=== PATIENT | female | born 1950 | race Caucasian/White ===

== ENCOUNTER 2017-02-09 09:00 | Inpatient (IN) | payer MEDICARE, OTHER ==
--- NOTE | 2017-02-08 09:18 | HP ---
HISTORY AND PHYSICAL: DATE OF OFFICE VISIT: 02/03/17 DATE OF ADMISSION/SURGERY: 02/09/17 SURGEON: Rose Luther MD PROCEDURE: Left total knee arthroplasty. CHIEF COMPLAINT: Left knee pain. HISTORY OF PRESENT ILLNESS: Ms. Monae is a 66-year-old female with complaints of left knee pain secondary to advanced osteoarthritis. She has failed conservative management and has elected to proceed with a left total knee arthroplasty, which is scheduled for 02/09/17. PAST MEDICAL HISTORY: DVT of the left lower extremity, hypertension, depression , COPD, GERD, Sun's esophagus, and questionable kidney disease. PAST SURGICAL HISTORY: Left knee arthroscopy, bladder surgery, tonsillectomy, adenoidectomy. CURRENT MEDICATIONS: 1. Coumadin. 2. Vitamin D. 3. Lidocaine patch. 4. Hydralazine 25 mg twice a day. 5. Norvasc 10 mg once a day. 6. Trazodone 100 mg every night. 7. Denavir 3 times daily as needed. 8. Omeprazole 40 mg every day. 9. Oxistat 1%. 10. Fluoxetine 40 mg twice a day. 11. Simvastatin 10 mg q.h.s. 12. Zoloft. ALLERGIES: IBUPROFEN, LEVAQUIN, and SEAFOOD. FAMILY HISTORY: Cancer. SOCIAL HISTORY: She is a 66-year-old female. She is disabled. She does not use alcohol, tobacco, or drugs. REVIEW OF SYSTEMS: A complete 14-point review of systems was reviewed with the patient, positive for COPD and sleep apnea as well as left lower extremity DVT. PHYSICAL EXAMINATION GENERAL: She is well developed, well nourished, in no acute distress. She is alert and oriented x3. Pleasant mood and appropriate affect. VITAL SIGNS: She stands 5 feet 2 inches tall and weighs 220 pounds. Her blood pressure is 168/68, heart rate is 84. HEENT: Normocephalic, atraumatic. NECK: Supple. PULMONARY: Lungs are clear to auscultation bilaterally. CARDIO: Regular rate and rhythm. ABDOMEN: Soft, nontender, nondistended. NEUROLOGIC: She is alert and oriented x3. MUSCULOSKELETAL: Left lower extremity, skin is intact. There are no open wounds or abrasions. She has moderate joint effusion. She has full range of motion of the left knee. Her lower extremity muscle group strengths are intact at 5/5. She has 2+ dorsalis pedis pulses and intact sensation. ASSESSMENT AND PLAN: Ms. Monae is a 66-year-old female with complaints of left knee pain secondary to advanced osteoarthritis. She has failed conservative management and has elected to proceed with left total knee arthroplasty, which is scheduled for 02/09/[address] Luther discussed the risks and benefits of the surgery at today's visit and all of her questions were answered. She will follow up with Dr. Luther 2 weeks after the surgery. CRISTOBAL ECHAVARRIA [id number]/[facility] #: [id number] ISHAN
[~2017-02-09 09:00] MED LIST: Buffered Lidocaine 0.9% SYRIN* 5 ML/SYR SYRINGE INTRADERM ONE; Famotidine IV* 10 MG/ML 2 ML (20 mg) IV ONE; Morphine INJ* 2 MG/ML 1 ML SYRINGE IV PRN; PROCHLORPERAZINE INJ 5 MG/ML 2 ML VIAL IV PRN; fentaNYL* 50 MCG/ML 2 ML VIAL (100 MCG VIAL) IV PRN; oxyCODONE/Acetamin 5/325 MG* TAB PO PRN
[2017-02-09] MEDS ORDERED: Buffered Lidocaine 0.9% SYRIN* 5 ML/SYR SYRINGE ONE (11:16)
[2017-02-09] MEDS ORDERED: ceFAZolin 2 GM PREMIX(*) 2 GM/50 ML BAG IVPB ONE (11:16)
[2017-02-09] MEDS ORDERED: Famotidine IV* 10 MG/ML 2 ML (20 mg) ONE (11:16)
[2017-02-09] MEDS ORDERED: Midazolam* 1 MG/ML 10 ML VIAL (10 MG) ONE (13:21)
[2017-02-09] MEDS ORDERED: KETAMINE HCL* 50 MG/ML 10 ML VIAL ONE (13:21)
[2017-02-09] MEDS ORDERED: fentaNYL* 50 MCG/ML 2 ML VIAL (100 MCG VIAL) ONE ×2 (13:21→18:54)
[2017-02-09] MEDS ORDERED: Morphine PF AMP (0.5MG/ML)* 5 MG/10 ML AMP ONE (13:53)
[2017-02-09] MEDS ORDERED: Ketorolac INJ* 30 MG/ML 1 ML VIAL IV PRN (15:09)
[2017-02-09] MEDS ORDERED: Ondansetron INJ* 2 MG/ML VIAL IV PRN (15:09)
[2017-02-09] MEDS ORDERED: Naloxone* 0.4 MG/ML 1 ML VIAL IV PRN (15:09)
[2017-02-09] MEDS ORDERED: Nalbuphine* 20 MG/ML 1 ML VIAL IV PRN (15:09)
[2017-02-09] MEDS ORDERED: PROCHLORPERAZINE INJ 5 MG/ML 2 ML VIAL IV PRN (15:09)
[2017-02-09] MEDS ORDERED: diPHENhydraMINE IV* 50 MG/ML 1 ml VIAL (BENADRYL) IV PRN (15:09)
[2017-02-09] MEDS ORDERED: Magnesium Hydroxide LIQ* 30 ML UDC PO PRN (15:33)
[2017-02-09] MEDS ORDERED: Polyethylene Glycol 3350* 17 GM PACKET PO PRN (15:33)
[2017-02-09] MEDS ORDERED: Bisacodyl SUPP* 10 MG SUPP PR PRN (15:33)
[2017-02-09] MEDS ORDERED: Acetaminophen TAB* 325 MG PO PRN (15:33)
[2017-02-09] MEDS ORDERED: Propofol* 10 MG/ML 20 ML BTL IV PUSH ONE (16:39)
[2017-02-09] MEDS ORDERED: ROPIVACAINE 5 MG/ML 30 ML BTL (0.5%) ONE (16:39)
[2017-02-09] MEDS ORDERED: Bupivacaine 0.5% SDV PF* 30 ML VIAL ONE (16:39)
[2017-02-09] MEDS ORDERED: Propofol* 500 MG/50 ML BTL ONE (16:39)
[2017-02-09] MEDS ORDERED: Lidocaine 2% PF * 5 ML VIAL ONE (16:39)
[2017-02-09] MEDS ORDERED: Phenylephrine INJ* 10 MG/ML 1 ML VIAL (10 MG) ONE (16:40)
[2017-02-09] MEDS ORDERED: Warfarin TAB(*) 6 MG PO ONE ×2 (17:00→21:00)
--- NOTE | 2017-02-09 17:14 | CONSULT ---
Subjective Date of Service: 02/09/17 Interval History: Ms. Monae is a 66 yo female with a PMH significant for LLE DVT, HTN, COPD, СЕРГЕЙ, GERD, depression, Sun's esophagus, and kidney disease. She reports a hx of left knee pain secondary to osteoarthritis that has failed outpatient management. Ms. Monae is still somewhat drowsy following her anesthesia but currently denies any pain or other complaint, other than itching to her face. She denies any recent fever/illness, CP, SOB, abd pain, n/v and felt well prior to admission. Family History: Findings - hereditary blindness, uterine cancer in mother and sister Social History: Findings - 43 year smoking hx, quit 02/2016; denies ETOH and drug use; currently on disability secondary to occupational accident Past Medical History: Findings - HTN, depression, chronic back pain, COPD, GERD , Sun's esophagus, DVT LLE 09/2016, СЕРГЕЙ on CPAP; PSH: repair vaginal vault prolapse, hysterectomy, oopherectomy, tonsillectomy, cholecystectomy, knee arthroscopy Review of Systems - Measurements Intake and Output: Intake and Output Last 24 Hours 02/07/17 02/08/17 02/09/17 02/10/17 06:59 06:59 06:59 06:59 Weight 235 lb - Review of Systems Constitutional Symptoms: Negative: Weakness, Fatigue, Fever Dermatology: Negative: Rash, Skin Lesions HEENT: Negative: Change in Hearing, Vertigo Eyes: Negative: Change in Vision Pulmonary: Positive: COPD Negative: Cough, Wheezing, Respiratory Distress Cardiology: Negative: Chest Pain, Shortness of Breath, Palpitations, Syncope Gastroenterology: Negative: Abdominal Pain, Nausea, Vomiting, Diarrhea Genital - Urinary: Negative: Dysuria, Polyuria Musculoskeletal: Positive: Low Back Pain - chronic Neurology: Negative: Headache, Change in Vision, Numbness\Paresthesiae Objective Active Medications: Acetaminophen (Tylenol Tab*) 650 mg PO Q4H PRN PRN Reason: PAIN OR TEMPERATURE Bisacodyl (Dulcolax Supp*) 10 mg CA DAILY PRN PRN Reason: constipation Diphenhydramine HCl (Benadryl Iv*) 12.5 mg IV Q6H PRN PRN Reason: PRURITIS Diphenhydramine HCl (Benadryl Iv*) 12.5 mg IV Q6H PRN PRN Reason: PRURITIS Docusate Sodium (Colace Cap*) 100 mg PO BID [facility] Enoxaparin Sodium (Lovenox(*)) 30 mg SUBCUT Q24H [facility] Famotidine (Pepcid Iv*) 20 mg IV ONCE ONE Stop: 02/09/17 06:01 Last Admin: 02/09/17 11:59 Dose: 20 mg Fentanyl Citrate (Fentanyl*) 25 mcg IV Q3M PRN PRN Reason: PAIN - MODERATE Stop: 02/09/17 06:07 Lactated Ringer's (Lactated Ringers 1000 Ml Bag*) 1,000 mls @ 125 mls/hr IV PER RATE [facility] Last Admin: 02/09/17 11:59 Dose: 125 mls/hr Cefazolin Sodium 1 gm/ Sodium (Chloride) 50 mls @ 200 mls/hr IVPB Q8H [facility] Stop: 02/10/17 08:14 Lactated Ringer's (Lactated Ringers 1000 Ml Bag*) 1,000 mls @ 100 mls/hr IV PER RATE [facility] Ketorolac Tromethamine (Toradol Inj*) 15 mg IV Q6H PRN PRN Reason: PAIN Stop: 02/11/17 21:10 Lactulose (Lactulose*) 30 ml PO Q6H PRN PRN Reason: constipation Lidocaine/Sodium Bicarbonate (Buffered Lidocaine 0.9% Syrin*) 0.2 ml INTRADERM ONCE ONE Stop: 02/08/17 11:20 Last Admin: 02/09/17 12:00 Dose: 1 applic Magnesium Hydroxide (Milk Of Magnesia Liq*) 30 ml PO Q6H PRN PRN Reason: constipation Morphine Sulfate (Morphine Inj (Syringe)*) 2 mg IV Q5M PRN PRN Reason: PAIN - SEVERE Stop: 02/09/17 06:06 Morphine Sulfate (Morphine Inj (Syringe)*) 2 mg IV Q2H PRN PRN Reason: PAIN Nalbuphine HCl (Nubain*) 5 mg IV Q6H PRN PRN Reason: pruritis Naloxone HCl (Narcan*) 0.08 mg IV Q2M PRN PRN Reason: respiratory depression Ondansetron HCl (Zofran Inj*) 2 mg IV Q6H PRN PRN Reason: Nausea/Vomiting Ondansetron HCl (Zofran Tab*) 4 mg PO Q6H PRN PRN Reason: NAUSEA Oxycodone HCl (Roxycodone Tab*) 10 mg PO Q4H PRN PRN Reason: SEVERE PAIN Oxycodone/Acetaminophen (Percocet 5/325 Tab*) 1 tab PO ONCE PRN PRN Reason: PAIN - MODERATE Stop: 02/10/17 05:46 Oxycodone/Acetaminophen (Percocet 5/325 Tab*) 2 tab PO Q4H PRN PRN Reason: Moderate Pain Oxycodone/Acetaminophen (Percocet 5/325 Tab*) 1 tab PO Q3H PRN PRN Reason: PAIN - MODERATE Oxycodone/Acetaminophen (Percocet 5/325 Tab*) 2 tab PO Q3H PRN PRN Reason: PAIN - MODERATE Polyethylene Glycol/Electrolytes (Miralax*) 17 gm PO DAILY PRN PRN Reason: Constipation Prochlorperazine Edisylate (Compazine Inj*) 2.5 mg IV ONCE PRN PRN Reason: NAUSEA/VOMITING Stop: 02/09/17 05:46 Prochlorperazine Edisylate (Compazine Inj*) 2.5 mg IV Q6H PRN PRN Reason: NAUSEA/VOMITING Warfarin Sodium (Coumadin Tab(*)) 6 mg PO ONCE@1700 ONE PRN Reason: Protocol Stop: 02/09/17 17:01 Vital Signs 02/09/17 11:19 Temperature 97.0 F Pulse Rate 74 Respiratory 18 Rate Blood Pressure 161/77 (mmHg) O2 Sat by Pulse 95 Oximetry Oxygen Devices in Use Now: Nasal Cannula Appearance: Older female, lying in bed, NAD, drowsy but arousable and answering appropriately Eyes: No Scleral Icterus Ears/Nose/Mouth/Throat: Mucous Membranes Moist Neck: NL Appearance and Movements; NL JVP Respiratory: Symmetrical Chest Expansion and Respiratory Effort, Clear to Auscultation Cardiovascular: NL Sounds; No Murmurs; No JVD, RRR Abdominal: NL Sounds; No Tenderness; No Distention Extremities: No Clubbing, Cyanosis, - - LLE dressing c/d/i, movement/sensation intact to BLE Neurological: NL Muscle Strength and Tone, - - follows commands, oriented x 3 Lines/Tubes/Other Access: Clean, Dry and Intact Murdock, Clean, Dry and Intact Peripheral IV Nutrition: Taking PO's Assessment/Plan - Billing Ms. Monae is a 66 yo female with a PMH significant for LLE DVT, HTN, COPD, СЕРГЕЙ, GERD, depression, Sun's esophagus, and kidney disease who was admitted on 02/09/17 for an elective left total knee replacement. Plan By Medical Problem: 1. Left total knee arthroplasty - POD #0, management per ortho. Continue pain management, plan for PT/OT. 2. Hx of LLE DVT - dx September 2016, plan to continue warfarin through March 2017. Patient previously on warfarin, recommend resume anticoagulation as soon as possible (recommend within 24 hours) as patient is at risk for further DVT/ PE complications. Outpatient f/u with Dr. Sher (hematology) 3. HTN - Currently normotensive, continue hydralazine. 4. СЕРГЕЙ - Continue CPAP (patient brought home machine). 5. COPD - Stable. PRN albuterol available. 6. Depression - Continue home sertraline. Resume trazodone tomorrow (with hold parameters for sedation). 7. GERD and Sun's esophagus - Stable, continue omeprazole. 8. Kidney disease - continue to trend renal function. 9. Chronic lumbar radiculopathy with sciatica - PRN analgesia available. Patient uses prn cyclobenzaprine and lidocaine patches at home. Question if patient still is on Lyrica (has not been filled for several months). NOTE: Patient's initial med list in the computer does not match what is on patient's PCP medication list. Medications vary between PCP, hematology, and mental health. Med list updated per pharmacy but may be helpful to have family bring patient's home meds in so that we can confirm that what we have is correct. VTE PPX: Per ortho Diet: Heart healthy diet Code Status: Full code Admission Status and Rationale: Inpatient admission, dispo per ortho. Hospitalist co-medical management Thank you for this consult. We will follow with you. Counseling and/or Coordination of Care Minutes: 45
[2017-02-09] MEDS ORDERED: Nalbuphine* 20 MG/ML 1 ML VIAL ONE (17:32)
[2017-02-09] MEDS ORDERED: diPHENhydraMINE IV* 50 MG/ML 1 ml VIAL (BENADRYL) ONE (17:41)
[2017-02-09] MEDS ORDERED: Albuterol HFA INHALER* 8 gm MDI INH PRN (18:15)
[2017-02-09] MEDS ORDERED: Albuterol 2.5 MG/3 ML NEB.SOL* (0.083%) INH PRN (18:15)
[2017-02-09] MEDS ORDERED: oxyCODONE/Acetamin 5/325 MG* TAB ONE (18:54)
--- NOTE | 2017-02-09 18:57 | RAD ---
Indication: Left knee replacement 2 views left knee demonstrates left knee replacement in satisfactory position. No loosening is noted. IMPRESSION: Left knee replacement in satisfactory position.
[2017-02-09] MEDS: Docusate CAP* 100 MG PO SCH (21:13)
[2017-02-09] MEDS: hydrALAZINE TAB* 25 MG PO SCH (21:14)
[2017-02-09] MEDS: oxyCODONE/Acetamin 5/325 MG* TAB PO PRN (22:58)
[2017-02-09] MEDS: ceFAZolin VIAL(*) 1 GM in NS 0.9% 50 ML* 50 ML IVPB SCH (22:59)
[2017-02-10] MEDS: oxyCODONE/Acetamin 5/325 MG* TAB PO PRN ×5 (02:59→22:13)
[2017-02-10] MEDS ORDERED: NS 0.9% 500 ML BAG* 500 ML IV ONE (06:15)
[2017-02-10] MEDS: Omeprazole CAP* 20 MG PO SCH (06:21)
[2017-02-10] MEDS ORDERED: Morphine INJ* 2 MG/ML 1 ML SYRINGE IV PRN (06:35)
[2017-02-10 06:52] LABS: Hematocrit 30 % (35-47)
[2017-02-10 06:58] LABS: BUN/Creatinine Ratio 17.1 (8-20); Calcium 8.9 mg/dL (8.6-10.3); EGFR African American 55.8 (>60); EGFR Non-African American 43.4 (>60); Potassium 4.4 mmol/L (3.5-5.0)
[2017-02-10] MEDS ORDERED: Ondansetron TAB* 4 MG PO PRN (07:10)
[2017-02-10] MEDS ORDERED: diPHENhydraMINE IV* 50 MG/ML 1 ml VIAL (BENADRYL) IV PRN (07:10)
[2017-02-10] MEDS: ceFAZolin VIAL(*) 1 GM in NS 0.9% 50 ML* 50 ML IVPB SCH ×2 (07:34→15:02)
[2017-02-10] MEDS: Sertraline* 50 MG TAB PO SCH (07:37)
[2017-02-10] MEDS: Docusate CAP* 100 MG PO SCH ×2 (07:37→22:12)
[2017-02-10] MEDS: hydrALAZINE TAB* 25 MG PO SCH ×2 (08:46→22:12)
--- NOTE | 2017-02-10 08:58 | OP ---
DATE OF OPERATION: 02/09/17 - ROOM #341 DATE OF : 46 SURGEON: Rose Luther MD GEOTHERMAL PRODUCTION MANAGER: CRISTOBAL Summers. Hai Levy did help throughout the procedure with preparation of the leg, wound retraction, manipulation of the knee, and wound closure. ANESTHESIOLOGIST: Dr. Felipe Kang. ANESTHESIA: Spinal. PRE-OP DIAGNOSIS: Severe endstage degenerative osteoarthritis of the left knee joint. POST-OP DIAGNOSIS: Severe endstage degenerative osteoarthritis of the left knee joint. OPERATIVE PROCEDURE: Left total knee arthroplasty. COMPLICATIONS: None. TOURNIQUET TIME: 52 minutes. ESTIMATED BLOOD LOSS: 200 cc. SPECIMENS: Bone and cartilage from the left knee joint sent to Pathology. HARDWARE USED: [employer] cemented total knee hardware. Two packages of simplex bone cement were used. For the femur, a left narrow size 4 posterior stabilized femoral component. For the tibia, a size 3 left tibial baseplate. For the insert, an 11 mm posterior stabilized articular insert. For the patella , a 29, 7.5 thickness 3 peg all poly patella. BRIEF HISTORY/INDICATIONS: Ms. Monae is a 66-year-old female who is here at this point with severe left knee pain. Radiographs showed [id number] arthritis. She failed conservative treatment with antiinflammatories, pain medications, intraarticular injections, and physical therapy. She elected to undergo left total knee arthroplasty due to continued pain and decreased quality of life. Informed consent was obtained from the patient. The patient understood the risks of surgery included, but were not limited to bleeding, infection, damage to nearby structures, continued pain, need for further surgery, intraoperative fracture, nerve palsy, hardware failure, knee stiffness, loss of motion, stroke , heart attack, blood clot, and . She wished to proceed. INTRAOPERATIVE FINDINGS: Intraoperatively, the patient was noted to have severe endstage arthritis with complete loss of cartilage in the patellofemoral and medial compartment. DESCRIPTION OF PROCEDURE: Ms. Monae was identified in the preanesthesia unit. Her left lower extremity was marked as the correct preoperative side. Informed consent was signed and placed in the chart. The patient was taken to the operating room and placed under spinal anesthesia without difficulty. A Murdock catheter was placed. A tourniquet was placed on the left high. The left lower extremity was prepped and draped in the usual sterile fashion. Preop time -out was made to correctly identify the patient side and site. Appropriate perioperative antibiotics were given within 1 hour of incision. Tourniquet was inflated until the tourniquet time for this procedure was 52 minutes. A 14 cm midline incision was made with a 10 blade and carried down to the extensor mechanism. A new 10 blade was used to make a standard medial parapatellar arthrotomy. The patella was subluxed laterally. Electrocautery was used to subperiosteally elevate soft tissue off the superomedial tibia to the mid sagittal plane. The knee was flexed up. The anterior horn of the lateral meniscus and the ACL was sharply released. A drill was used to enter the distal femur. Intramedullary distal femoral cutting jig was pinned on the distal femur. A 9 mm of distal femoral bone was carefully removed. Next the external rotational guide pinned on the distal femur. Distal femur was sized to a size 4. Size 4 multi- cutting jig was pinned on the distal femur. Oscillating saw was used to make the appropriate 4 chamfer cuts. The PCL was completely released and tibia was subluxed anteriorly. Extramedullary tibial cutting guide was pinned on the proximal tibia. The oscillating saw was used to make the appropriate proximal tibial cut perpendicular to the mechanical axis of the tibia. The knee was brought out into full extension. Spacer block had good fit with the knee in full extension. There is good medial and lateral balancing. Flexion and extension gaps were well balanced. The knee was flexed up. Lamina steam table associate was placed both medially and laterally. Any remaining meniscus was carefully removed using electrocautery. Any posterior osteophytes were removed with a curved osteotome. A size 4 left narrow femoral trial was impacted on to the distal femur and had good fit. The box for the posterior stabilized implant was prepared using a reamer and box- cut osteotome. Size 3 tibial tray trial with an 11 mm insert trial was placed and the knee was taken through the range of motion. The knee had full extension to 130 degrees flexion with good patellofemoral tracking. The patella was everted. 7 mm of patellar bone and cartilage were carefully removed using an oscillating saw. The patella was sized to size 29. The 3 pegs were drilled through the size 29 guide. A 7.5 thickness size 29 trial patella was placed and the knee was taken through range of motion. There is good patellofemoral tracking. All trials were carefully removed. The tibia was subluxed anteriorly and sized to a size 3. Proximal tibia was prepared using a size 3 keel punch. All bony cut surfaces were copiously irrigated with sterile saline and dried. Final implants were cemented into place, starting with the tibia followed by the femur , and lastly the patella. An 11-mm insert trial was placed and the knee was brought out to full extension while the cement was fully cured. The tourniquet was turned down at 52 minutes. The knee was copiously irrigated with sterile saline. Electrocautery was used to obtain meticulous hemostasis. Once the cement was fully cured. The insert trial was removed. Any excess cement was carefully removed from around the hardware and capsule. A size 11 posterior stabilized insert was chosen as the final insert. This was locked into position on the tibial tray. Stability of the insert was checked and rechecked and noted to be stable. The knee was copiously irrigated with sterile saline. The extensor mechanism was closed over a median Hemovac drain using interrupted #1 Vicryl's. The rest of the incision was closed in a layered fashion using 0 and 2-0 Vicryl's. The skin was closed using running 3-0 nylon suture. Sterile Xeroform, 4x4s, and Webril were used to cover the incision. Michael wrap and cold pack were placed over this. The patient's anesthesia was reversed without difficulty. She was taken to the PACU in stable condition. Intended weightbearing will be weightbearing as tolerated. Intended DVT prophylaxis will be Coumadin with a Lovenox bridge. [id number]/[facility] #: [id number] ISHAN
[2017-02-10] MEDS ORDERED: Enoxaparin(*) 30 MG/0.3 ML SYR SUBCUT SCH ×2 (09:00→21:00)
[2017-02-10] MEDS ORDERED: oxyCODONE TAB* 5 MG TAB ONE (11:06)
[2017-02-10] MEDS: oxyCODONE TAB* 5 MG TAB PO PRN ×3 (11:07→19:55)
--- NOTE | 2017-02-10 11:55 | PN ---
Progress Note - Progress Note Date of Service: 02/10/17 Note: anesthesia duramorph followup. The had a rough night, is complaining of pain. She is getting oral meds. Neuro ok, no ALAN. s/p TKR continue oral meds
[2017-02-10] MEDS ORDERED: Warfarin TAB(*) 4 MG PO ONE (17:00)
--- NOTE | 2017-02-10 17:06 | PN ---
Subjective Date of Service: 02/10/17 Interval History: Good pain control, got OOB twice today. No new c/o. She has taken 4.5 mg warfarin daily for the past month, different doses before that. Family History: Findings - hereditary blindness, uterine cancer in mother and sister Social History: Findings - 41 year smoking hx, quit 02/2016; denies ETOH and drug use; currently on disability secondary to occupational accident Past Medical History: Findings - HTN, depression, chronic back pain, COPD, GERD , Liu's esophagus, DVT LLE 09/2016, СЕРГЕЙ on CPAP; PSH: repair vaginal vault prolapse, hysterectomy, oopherectomy, tonsillectomy, cholecystectomy, knee arthroscopy Objective Active Medications: Acetaminophen (Tylenol Tab*) 650 mg PO Q4H PRN PRN Reason: PAIN OR TEMPERATURE Albuterol (Ventolin 2.5 Mg/3 Ml Neb.Lucy*) 2.5 mg INH Q4H PRN PRN Reason: SOB/WHEEZING Albuterol (Ventolin Hfa Inhaler*) 2 puff INH Q4H PRN PRN Reason: SOB/WHEEZING Atorvastatin Calcium (Lipitor*) 10 mg PO DAILY@17[facility] Bisacodyl (Dulcolax Supp*) 10 mg [place] DAILY PRN PRN Reason: constipation Diphenhydramine HCl (Benadryl Iv*) 12.5 mg IV Q6H PRN PRN Reason: PRURITIS Docusate Sodium (Colace Cap*) 100 mg PO BID [facility] Last Admin: 02/10/17 07:37 Dose: 100 mg Enoxaparin Sodium (Lovenox(*)) 100 mg SUBCUT Q12HR [facility] Hydralazine HCl (Apresoline Tab*) 25 mg PO BID [facility] Last Admin: 02/10/17 08:46 Dose: 25 mg Lactated Ringer's (Lactated Ringers 1000 Ml Bag*) 1,000 mls @ 100 mls/hr IV PER RATE [facility] Last Admin: 02/10/17 08:45 Dose: 100 mls/hr Ketorolac Tromethamine (Toradol Inj*) 15 mg IV Q6H PRN PRN Reason: PAIN Stop: 02/11/17 21:10 Lactulose (Lactulose*) 30 ml PO Q6H PRN PRN Reason: constipation Magnesium Hydroxide (Milk Of Magnesia Liq*) 30 ml PO Q6H PRN PRN Reason: constipation Morphine Sulfate (Morphine Inj (Syringe)*) 2 mg IV Q2H PRN PRN Reason: PAIN Last Admin: 02/10/17 06:37 Dose: 2 mg Omeprazole (Prilosec Cap*) 40 mg PO DAILY@0600 [facility] Last Admin: 02/10/17 06:21 Dose: 40 mg Ondansetron HCl (Zofran Tab*) 4 mg PO Q6H PRN PRN Reason: NAUSEA Oxycodone HCl (Roxycodone Tab*) 10 mg PO Q4H PRN PRN Reason: SEVERE PAIN Last Admin: 02/10/17 15:33 Dose: 10 mg Oxycodone/Acetaminophen (Percocet 5/325 Tab*) 1 tab PO Q3H PRN PRN Reason: PAIN - MODERATE Oxycodone/Acetaminophen (Percocet 5/325 Tab*) 2 tab PO Q3H PRN PRN Reason: PAIN - MODERATE Last Admin: 02/10/17 13:03 Dose: 2 tab Pharmacy Profile Note (Coumadin Daily Reminder*) 0 note FOLLOW UP 1700 [facility] Polyethylene Glycol/Electrolytes (Miralax*) 17 gm PO DAILY PRN PRN Reason: Constipation Sertraline HCl (Zoloft*) 100 mg PO DAILY [facility] Last Admin: 02/10/17 07:37 Dose: 100 mg Trazodone HCl (Desyrel Tab*) 100 mg PO BEDTIME [facility] Warfarin Sodium (Coumadin Tab(*)) 4.5 mg PO DAILY@1700 [facility] PRN Reason: Protocol Vital Signs 02/09/17 02/09/17 02/09/17 17:10 17:15 17:20 Temperature 97.9 F Pulse Rate 74 69 70 Respiratory 10 12 12 Rate Blood Pressure 155/67 149/92 165/60 (mmHg) O2 Sat by Pulse 99 99 99 Oximetry 02/09/17 02/09/17 02/09/17 17:25 17:30 17:45 Temperature Pulse Rate 72 62 65 Respiratory 14 15 12 Rate Blood Pressure 139/58 135/59 140/63 (mmHg) O2 Sat by Pulse 100 96 97 Oximetry 02/09/17 02/09/17 02/09/17 18:00 18:15 18:30 Temperature Pulse Rate 59 63 72 Respiratory 12 16 14 Rate Blood Pressure 149/56 136/73 138/65 (mmHg) O2 Sat by Pulse 98 97 97 Oximetry 02/09/17 02/09/17 02/09/17 18:45 18:57 19:00 Temperature 97.2 F Pulse Rate 67 63 Respiratory 16 16 16 Rate Blood Pressure 157/60 130/60 (mmHg) O2 Sat by Pulse 96 97 Oximetry 02/09/17 02/09/17 02/09/17 19:15 19:29 19:36 Temperature 97.2 F 97.2 F Pulse Rate 60 59 Respiratory 16 14 Rate Blood Pressure 137/64 133/50 (mmHg) O2 Sat by Pulse 95 96 96 Oximetry 02/09/17 02/09/17 02/09/17 20:00 20:42 21:18 Temperature 97.4 F Pulse Rate 78 66 Respiratory 18 16 14 Rate Blood Pressure 129/55 (mmHg) O2 Sat by Pulse 95 96 Oximetry 02/09/17 02/09/17 02/09/17 21:37 22:58 23:48 Temperature 97.7 F 97.7 F Pulse Rate 69 73 Respiratory 16 16 18 Rate Blood Pressure 133/61 122/57 (mmHg) O2 Sat by Pulse 98 93 Oximetry 02/10/17 02/10/17 02/10/17 00:58 01:34 02:10 Temperature 98.0 F Pulse Rate 71 Respiratory 16 18 18 Rate Blood Pressure 129/52 (mmHg) O2 Sat by Pulse 94 Oximetry 02/10/17 02/10/17 02/10/17 02:59 03:17 04:59 Temperature 97.8 F Pulse Rate 72 Respiratory 16 16 16 Rate Blood Pressure 110/47 (mmHg) O2 Sat by Pulse 98 Oximetry 02/10/17 02/10/17 02/10/17 06:37 07:30 07:36 Temperature Pulse Rate 70 Respiratory 16 16 18 Rate Blood Pressure 137/50 (mmHg) O2 Sat by Pulse 94 Oximetry 02/10/17 02/10/17 02/10/17 07:40 09:36 10:25 Temperature 99.0 F Pulse Rate Respiratory 16 18 Rate Blood Pressure (mmHg) O2 Sat by Pulse Oximetry 02/10/17 02/10/17 02/10/17 11:07 11:48 13:03 Temperature 98.9 F Pulse Rate 78 Respiratory 17 16 20 Rate Blood Pressure 157/55 (mmHg) O2 Sat by Pulse 95 Oximetry 02/10/17 02/10/17 02/10/17 13:05 15:03 15:31 Temperature 99.6 F Pulse Rate 87 Respiratory 20 18 16 Rate Blood Pressure 170/63 (mmHg) O2 Sat by Pulse 96 Oximetry 02/10/17 02/10/17 15:33 16:04 Temperature Pulse Rate 87 Respiratory 18 16 Rate Blood Pressure (mmHg) O2 Sat by Pulse 96 Oximetry Oxygen Devices in Use Now: Nasal Cannula Appearance: Alert, partly up in bed. In good spirits. Looks comfortable. Extremities: No Edema, No Clubbing, Cyanosis, - Skin: No Rash or Ulcers, No Nodules or Sclerosis, - Neurological: Alert and Oriented x 3, NL Sensation Result Diagrams: 02/10/17 06:31 02/10/17 06:31 Assess/Plan/Problems-Billing Ms. Monae is a 66 yo female with a PMH significant for LLE DVT, HTN, COPD, СЕРГЕЙ, GERD, depression, Liu's esophagus, and kidney disease who was admitted on 02/09/17 for an elective left total knee replacement. Plan By Medical Problem: 1. Left total knee arthroplasty - POD #0, management per ortho. Continue pain management, plan for PT/OT. 2. Hx of LLE DVT - dx September 2016, plan to continue warfarin through March 2017. Patient previously on warfarin, recommend resume anticoagulation as soon as possible (recommend within 24 hours) as patient is at risk for further DVT/ PE complications. Outpatient f/u with Dr. Sher (hematology) 3. HTN - Currently normotensive, continue hydralazine. 4. СЕРГЕЙ - Continue CPAP (patient brought home machine). 5. COPD - Stable. PRN albuterol available. 6. Depression - Continue home sertraline. Resume trazodone tomorrow (with hold parameters for sedation). 7. GERD and Liu's esophagus - Stable, continue omeprazole. 8. Kidney disease - continue to trend renal function. 9. Chronic lumbar radiculopathy with sciatica - PRN analgesia available. Patient uses prn cyclobenzaprine and lidocaine patches at home. Question if patient still is on Lyrica (has not been filled for several months). NOTE: Patient's initial med list in the computer does not match what is on patient's PCP medication list. Medications vary between PCP, hematology, and mental health. Med list updated per pharmacy but may be helpful to have family bring patient's home meds in so that we can confirm that what we have is correct. VTE PPX: Per ortho Diet: Heart healthy diet Code Status: Full code Admission Status and Rationale: Inpatient admission, dispo per ortho. Hospitalist co-medical management Thank you for this consult. We will follow with you. - Patient Problems (1) DVT (deep venous thrombosis) Current Visit: Yes Status: Acute Code(s): I82.409 - ACUTE EMBOLISM AND THOMBOS UNSP DEEP VN UNSP LOWER EXTREMITY SNOMED Code(s): 772815362 Comment: Diagnosed at [facility] 09/23, has 1 more month to go of tx. Depending on her mobility at that point could consider extending the period of antiocagulation. Bridge with enoxaparin 1 mg/kg q 12 hr, adequate GFR for full dose. No more Duramorph planned. (2) HTN (hypertension) Current Visit: Yes Status: Acute Code(s): I10 - ESSENTIAL (PRIMARY) HYPERTENSION SNOMED Code(s): 75029009 Comment: Continue hydralazine. (3) СЕРГЕЙ (obstructive sleep apnea) Current Visit: Yes Status: Acute Code(s): G47.33 - OBSTRUCTIVE SLEEP APNEA ( ADULT) (PEDIATRIC) SNOMED Code(s): 73527281 Comment: Using her home CPAP. (4) COPD (chronic obstructive pulmonary disease) Current Visit: Yes Status: Acute Code(s): J44.9 - CHRONIC OBSTRUCTIVE PULMONARY DISEASE, UNSPECIFIED SNOMED Code(s): 38947665 Comment: Albuterol PRN. (5) Liu esophagus Current Visit: Yes Status: Acute Code(s): K22.70 - LIU'S ESOPHAGUS WITHOUT DYSPLASIA SNOMED Code(s): 595326789 Comment: Continue omeprazole.
[2017-02-10] MEDS: Warfarin TAB(*) 2 MG PO SCH (17:38)
[2017-02-10] MEDS: Atorvastatin* 10 MG TAB PO SCH (17:38)
[2017-02-10] MEDS: Warfarin TAB(*) 2.5 MG PO SCH (17:39)
[2017-02-10] MEDS: traZODone TAB* 100 MG PO SCH (22:12)
[2017-02-10] MEDS: Enoxaparin(*) 100 MG/ML SYR SUBCUT SCH (22:13)
[2017-02-11] MEDS: oxyCODONE TAB* 5 MG TAB PO PRN ×3 (00:23→08:18)
[2017-02-11] MEDS: oxyCODONE/Acetamin 5/325 MG* TAB PO PRN ×6 (02:21→22:24)
[2017-02-11 05:08] LABS: Hematocrit 29 % (35-47); Hemoglobin 9.4 g/dl (12.0-16.0)
[2017-02-11] MEDS: Omeprazole CAP* 20 MG PO SCH (06:21)
[2017-02-11] MEDS: Sertraline* 50 MG TAB PO SCH (09:01)
[2017-02-11] MEDS: hydrALAZINE TAB* 25 MG PO SCH ×2 (09:01→20:01)
[2017-02-11] MEDS: Enoxaparin(*) 100 MG/ML SYR SUBCUT SCH (09:01)
[2017-02-11] MEDS: Docusate CAP* 100 MG PO SCH ×2 (09:01→20:01)
--- NOTE | 2017-02-11 12:22 | PN ---
Subjective Date of Service: 02/11/17 Interval History: Isbell L knee slowly improving. No new c/o. Family History: Findings - hereditary blindness, uterine cancer in mother and sister Social History: Findings - 41 year smoking hx, quit 02/2016; denies ETOH and drug use; currently on disability secondary to occupational accident Past Medical History: Findings - HTN, depression, chronic back pain, COPD, GERD , Liu's esophagus, DVT LLE 09/2016, СЕРГЕЙ on CPAP; PSH: repair vaginal vault prolapse, hysterectomy, oopherectomy, tonsillectomy, cholecystectomy, knee arthroscopy Objective Active Medications: Acetaminophen (Tylenol Tab*) 650 mg PO Q4H PRN PRN Reason: PAIN OR TEMPERATURE Albuterol (Ventolin 2.5 Mg/3 Ml Neb.Lucy*) 2.5 mg INH Q4H PRN PRN Reason: SOB/WHEEZING Albuterol (Ventolin Hfa Inhaler*) 2 puff INH Q4H PRN PRN Reason: SOB/WHEEZING Atorvastatin Calcium (Lipitor*) 10 mg PO DAILY@1700 COUNTS INCLUDE 234 BEDS AT [facility] Last Admin: 02/10/17 17:38 Dose: 10 mg Bisacodyl (Dulcolax Supp*) 10 mg [place] DAILY PRN PRN Reason: constipation Diphenhydramine HCl (Benadryl Iv*) 12.5 mg IV Q6H PRN PRN Reason: PRURITIS Docusate Sodium (Colace Cap*) 100 mg PO BID COUNTS INCLUDE 234 BEDS AT THE [facility] Last Admin: 02/11/17 09:01 Dose: 100 mg Enoxaparin Sodium (Lovenox(*)) 80 mg SUBCUT Q12HR COUNTS INCLUDE 234 BEDS AT THE [facility] Hydralazine HCl (Apresoline Tab*) 25 mg PO BID COUNTS INCLUDE 234 BEDS AT THE [facility] Last Admin: 02/11/17 09:01 Dose: 25 mg Lactated Ringer's (Lactated Ringers 1000 Ml Bag*) 1,000 mls @ 100 mls/hr IV PER RATE COUNTS INCLUDE 234 BEDS AT THE [facility] Last Admin: 02/10/17 08:45 Dose: 100 mls/hr Ketorolac Tromethamine (Toradol Inj*) 15 mg IV Q6H PRN PRN Reason: PAIN Stop: 02/11/17 21:10 Lactulose (Lactulose*) 30 ml PO Q6H PRN PRN Reason: constipation Magnesium Hydroxide (Milk Of Magnesia Liq*) 30 ml PO Q6H PRN PRN Reason: constipation Last Admin: 02/11/17 09:01 Dose: 30 ml Morphine Sulfate (Morphine Inj (Syringe)*) 2 mg IV Q2H PRN PRN Reason: PAIN Last Admin: 02/10/17 06:37 Dose: 2 mg Omeprazole (Prilosec Cap*) 40 mg PO DAILY@0600 COUNTS INCLUDE 234 BEDS AT THE [facility] Last Admin: 02/11/17 06:21 Dose: 40 mg Ondansetron HCl (Zofran Tab*) 4 mg PO Q6H PRN PRN Reason: NAUSEA Oxycodone HCl (Roxycodone Tab*) 10 mg PO Q4H PRN PRN Reason: SEVERE PAIN Last Admin: 02/11/17 08:18 Dose: 10 mg Oxycodone/Acetaminophen (Percocet 5/325 Tab*) 1 tab PO Q3H PRN PRN Reason: PAIN - MODERATE Last Admin: 02/11/17 06:21 Dose: 1 tab Oxycodone/Acetaminophen (Percocet 5/325 Tab*) 2 tab PO Q3H PRN PRN Reason: PAIN - MODERATE Last Admin: 02/11/17 02:21 Dose: 2 tab Pharmacy Profile Note (Coumadin Daily Reminder*) 0 note FOLLOW UP 1700 COUNTS INCLUDE 234 BEDS AT [facility] Last Admin: 02/10/17 17:40 Dose: 1 note Polyethylene Glycol/Electrolytes (Miralax*) 17 gm PO DAILY PRN PRN Reason: Constipation Sertraline HCl (Zoloft*) 100 mg PO DAILY COUNTS INCLUDE 234 BEDS AT THE [facility] Last Admin: 02/11/17 09:01 Dose: 100 mg Trazodone HCl (Desyrel Tab*) 100 mg PO BEDTIME COUNTS INCLUDE 234 BEDS AT THE [facility] Last Admin: 02/10/17 22:12 Dose: 100 mg Warfarin Sodium (Coumadin Tab(*)) 2.5 mg PO DAILY@1700 COUNTS INCLUDE 234 BEDS AT THE [facility] PRN Reason: Protocol Last Admin: 02/10/17 17:39 Dose: 2.5 mg Warfarin Sodium (Coumadin Tab(*)) 2 mg PO DAILY@1700 COUNTS INCLUDE 234 BEDS AT [facility] Last Admin: 02/10/17 17:38 Dose: 2 mg Vital Signs 02/10/17 02/10/17 02/10/17 13:03 13:05 15:03 Temperature Pulse Rate Respiratory 20 20 18 Rate Blood Pressure (mmHg) O2 Sat by Pulse Oximetry 02/10/17 02/10/17 02/10/17 15:31 15:33 16:00 Temperature 99.6 F Pulse Rate 87 Respiratory 16 18 Rate Blood Pressure 170/63 (mmHg) O2 Sat by Pulse 96 96 Oximetry 02/10/17 02/10/17 02/10/17 16:04 17:33 17:39 Temperature Pulse Rate 87 Respiratory 16 16 16 Rate Blood Pressure (mmHg) O2 Sat by Pulse 96 Oximetry 02/10/17 02/10/17 02/10/17 19:37 19:39 19:55 Temperature 98.8 F Pulse Rate 91 Respiratory 19 14 14 Rate Blood Pressure 154/47 (mmHg) O2 Sat by Pulse 82 Oximetry 02/10/17 02/10/17 02/10/17 21:55 22:13 22:27 Temperature Pulse Rate Respiratory 24 24 24 Rate Blood Pressure (mmHg) O2 Sat by Pulse Oximetry 02/10/17 02/11/17 02/11/17 23:51 00:13 00:23 Temperature 99.2 F Pulse Rate 101 Respiratory 18 20 20 Rate Blood Pressure 164/48 (mmHg) O2 Sat by Pulse 97 Oximetry 02/11/17 02/11/17 02/11/17 02:21 03:33 04:33 Temperature 98.4 F Pulse Rate 106 Respiratory 18 18 18 Rate Blood Pressure 146/53 (mmHg) O2 Sat by Pulse 96 Oximetry 02/11/17 02/11/17 02/11/17 06:21 07:27 08:00 Temperature 98.1 F Pulse Rate 100 Respiratory 18 16 18 Rate Blood Pressure 151/52 (mmHg) O2 Sat by Pulse 92 92 Oximetry 02/11/17 02/11/17 08:18 10:18 Temperature Pulse Rate Respiratory 18 18 Rate Blood Pressure (mmHg) O2 Sat by Pulse Oximetry Oxygen Devices in Use Now: Nasal Cannula Appearance: Alert, sitting up in bed. In good spirits. Looks comfortable. Chiller on L knee. Eyes: No Scleral Icterus Extremities: No Clubbing, Cyanosis, - - 1+ edema L foot. Skin: No Rash or Ulcers, No Nodules or Sclerosis Neurological: Alert and Oriented x 3, NL Sensation Result Diagrams: 02/11/17 04:37 02/10/17 06:31 Assess/Plan/Problems-Billing Ms. Monae is a 66 yo female with a PMH significant for LLE DVT, HTN, COPD, СЕРГЕЙ, GERD, depression, Liu's esophagus, and kidney disease who was admitted on 02/09/17 for an elective left total knee replacement. Plan By Medical Problem: 1. Left total knee arthroplasty - POD #0, management per ortho. Continue pain management, plan for PT/OT. 2. Hx of LLE DVT - dx September 2016, plan to continue warfarin through March 2017. Patient previously on warfarin, recommend resume anticoagulation as soon as possible (recommend within 24 hours) as patient is at risk for further DVT/ PE complications. Outpatient f/u with Dr. Sher (hematology) 3. HTN - Currently normotensive, continue hydralazine. 4. СЕРГЕЙ - Continue CPAP (patient brought home machine). 5. COPD - Stable. PRN albuterol available. 6. Depression - Continue home sertraline. Resume trazodone tomorrow (with hold parameters for sedation). 7. GERD and Liu's esophagus - Stable, continue omeprazole. 8. Kidney disease - continue to trend renal function. 9. Chronic lumbar radiculopathy with sciatica - PRN analgesia available. Patient uses prn cyclobenzaprine and lidocaine patches at home. Question if patient still is on Lyrica (has not been filled for several months). NOTE: Patient's initial med list in the computer does not match what is on patient's PCP medication list. Medications vary between PCP, hematology, and mental health. Med list updated per pharmacy but may be helpful to have family bring patient's home meds in so that we can confirm that what we have is correct. VTE PPX: Per ortho Diet: Heart healthy diet Code Status: Full code Admission Status and Rationale: Inpatient admission, dispo per ortho. Hospitalist co-medical management Thank you for this consult. We will follow with you. - Patient Problems (1) DVT (deep venous thrombosis) Current Visit: Yes Status: Acute Code(s): I82.409 - ACUTE EMBOLISM AND THOMBOS UNSP DEEP VN UNSP LOWER EXTREMITY SNOMED Code(s): 191233958 Comment: Diagnosed at [facility] 09/23, has 1 more month to go of tx. Depending on her mobility at that point could consider extending the period of antiocagulation. Bridge with enoxaparin, adequate GFR for full dose. Taking into account her short stature and her GFR of 43.4, will reduce enoxaparin dose to 80 mg q 12 hr. (2) HTN (hypertension) Current Visit: Yes Status: Acute Code(s): I10 - ESSENTIAL (PRIMARY) HYPERTENSION SNOMED Code(s): 68889316 Comment: Continue hydralazine. (3) СЕРГЕЙ (obstructive sleep apnea) Current Visit: Yes Status: Acute Code(s): G47.33 - OBSTRUCTIVE SLEEP APNEA ( ADULT) (PEDIATRIC) SNOMED Code(s): 69915227 Comment: Using her home CPAP. (4) COPD (chronic obstructive pulmonary disease) Current Visit: Yes Status: Acute Code(s): J44.9 - CHRONIC OBSTRUCTIVE PULMONARY DISEASE, UNSPECIFIED SNOMED Code(s): 43059558 Comment: Albuterol PRN. (5) Liu esophagus Current Visit: Yes Status: Acute Code(s): K22.70 - LIU'S ESOPHAGUS WITHOUT DYSPLASIA SNOMED Code(s): 332979939 Comment: Continue omeprazole. (6) Renal insufficiency Current Visit: Yes Status: Acute Code(s): N28.9 - DISORDER OF KIDNEY AND URETER, UNSPECIFIED SNOMED Code(s): 273982191 Comment: Repeat BMP 02/12.
[2017-02-11] MEDS: Warfarin TAB(*) 2 MG PO SCH (16:55)
[2017-02-11] MEDS: Atorvastatin* 10 MG TAB PO SCH (16:55)
[2017-02-11] MEDS: Warfarin TAB(*) 2.5 MG PO SCH (16:55)
[2017-02-11] MEDS: traZODone TAB* 100 MG PO SCH (20:01)
[2017-02-11] MEDS: Enoxaparin(*) 80 MG/0.8 ML SYR SUBCUT SCH (20:01)
[2017-02-12] MEDS: oxyCODONE TAB* 5 MG TAB PO PRN (00:17)
[2017-02-12] MEDS: oxyCODONE/Acetamin 5/325 MG* TAB PO PRN ×3 (06:25→15:19)
[2017-02-12] MEDS: Omeprazole CAP* 20 MG PO SCH (06:25)
[2017-02-12 09:09] LABS: Hematocrit 26 % (35-47); Hemoglobin 8.5 g/dl (12.0-16.0); Mean Platelet Volume 7 um3 (7.4-10.4)
--- NOTE | 2017-02-12 09:22 | PN ---
Progress Note - Progress Note Date of Service: 02/12/17 SOAP: Subjective: [Pt was seen today sitting up in bed. Pt states that pain has been well controlled. She is feeling much better than she did yesterday. Denies any n/v, f /c/ns. ] Objective: [A&Ox3, NAD MSK: LLE: Dressing was changed by provider yesterday. Dressing is c/d/i. Pt is able to df/pf. NV intact. DP pulse 2+] Vital Signs Temp 98.1 F 02/12/17 07:31 Pulse 89 02/12/17 07:31 Resp 16 02/12/17 07:31 BP 158/64 02/12/17 07:31 Pulse Ox 91 02/12/17 07:31 Intake & Output 02/11/17 02/12/17 02/12/17 18:59 06:59 18:59 Intake Total 825 1180 320 Output Total 200 1750 Balance 625 -570 320 Intake: Oral 825 1180 320 Output: Urine 200 1750 Other: Estimated Void Medium # Bowel Movements 0 # Voids 3 Assessment: [S/P Left TKA ] Plan: [D/C today Continue current pain regiment at home Finish 2 courses of PT today before leaving Continue with Lovenox Bridge at home Take 10mg of Coumadin tonight ]
[2017-02-12 09:24] LABS: BUN/Creatinine Ratio 13.4 (8-20); Calcium 8.5 mg/dL (8.6-10.3); EGFR African American 73.4 (>60); EGFR Non-African American 57.1 (>60); Potassium 3.3 mmol/L (3.5-5.0)
[2017-02-12] MEDS: Sertraline* 50 MG TAB PO SCH (09:38)
[2017-02-12] MEDS: Enoxaparin(*) 80 MG/0.8 ML SYR SUBCUT SCH (09:40)
[2017-02-12] MEDS: hydrALAZINE TAB* 25 MG PO SCH (09:40)
[2017-02-12] MEDS: Docusate CAP* 100 MG PO SCH (09:40)
[2017-02-12] MEDS ORDERED: Potassium Chlor TAB* 20 MEQ TAB.ER PO SCH (12:00)
[2017-02-12 12:18] VITALS: BP 143/58
== END 2017-02-12 16:30 | disposition home or self-care (01) | DRG 470 ==
LOC: AA 11:07 → SSU 19:30
PROVIDERS: ADMIT Orthopaedic Surgery Adult Reconstructive Orthopaedic Surgery; ATTEND Orthopaedic Surgery Adult Reconstructive Orthopaedic Surgery
PROC: 0SRD0J9 Replacement of Left Knee Joint with Synthetic Substitute, Cemented, Open Approach (ICD-10-PCS; principal; 2017-02-09 14:00)
DX: M17.12 Unilateral primary osteoarthritis, left knee (principal); I82.402 Acute embolism and thrombosis of unspecified deep veins of left lower extremity; J44.9 Chronic obstructive pulmonary disease, unspecified; Z68.41 Body mass index [BMI] 40.0-44.9, adult; I10 Essential (primary) hypertension; F32.9 Major depressive disorder, single episode, unspecified; K21.9 Gastro-esophageal reflux disease without esophagitis; K22.70 Barrett's esophagus without dysplasia; G89.29 Other chronic pain; M54.9 Dorsalgia, unspecified; G47.33 Obstructive sleep apnea (adult) (pediatric); M54.16 Radiculopathy, lumbar region; M54.30 Sciatica, unspecified side; N28.9 Disorder of kidney and ureter, unspecified; M54.5 Low back pain; E66.9 Obesity, unspecified; M25.762 Osteophyte, left knee; Z88.6 Allergy status to analgesic agent; Z88.1 Allergy status to other antibiotic agents; Z91.013 Allergy to seafood; Z82.1 Family history of blindness and visual loss; Z80.49 Family history of malignant neoplasm of other genital organs; Z87.891 Personal history of nicotine dependence; Z90.710 Acquired absence of both cervix and uterus; Z90.722 Acquired absence of ovaries, bilateral; Z90.49 Acquired absence of other specified parts of digestive tract
CPT/HCPCS: 36415; 80048; 85014; 85018; 85049; 85610; 85730; 94760; A9270-GY; C1776; J0690; J1200; J1650; J2250; J2270; J2300; J2405; J2704; J2795; J3010